=== PATIENT | female | born 1960 | race Caucasian/White ===

== ENCOUNTER 2016-08-12 21:32 | Emergency (ER) | payer OTHER ==
[~2016-08-12] VITALS: Ht 157.5 cm; Wt 63.0 kg
[~2016-08-12 21:32] MED LIST: LISI-360 PO; PARO25CR PO; TOPI25 PO; XANA1TAB6 PO
[2016-08-12 21:55] VITALS: BP 146/70; PULSE 82; RESP 16; TEMP 98.2; O2SAT 97
--- NOTE | 2016-08-12 22:37 | PD ---
HPI Chief Complaint: Psychiatric Symptoms Time Seen by Provider: 22:11 Travel History International Travel<30 days: No Contact w/Intl Traveler<30days: No Traveled to known affect area: No History of Present Illness HPI Patient is a 56-year-old female who presents to emergency room for psychiatric evaluation. Patient reports that she was feeling depressed today, reports that she told her friend that she went to get up on life and that "it was not worth it to live." Patient reports that her friend tried calling her but she did not case picker the phone. Patient reports that before she knew it, the guide alpine were at her house. Patient reports that she did drink some alcohol today. Patient reports that she feels suicidal with no active plan for suicide. Denies use of drugs. PFSH Social History Tobacco Use: No Substance Use: Yes Allergies-Medications (Allergen,Severity, Reaction): Coded Allergies: Penicillin (Verified Allergy, Severe, Rash, 08/13/16) Reported Meds & Prescriptions Reported Meds & Active Scripts Active Reported Lisinopril 10 Mg Tab 10 Mg PO DAILY Xanax (Alprazolam) 2 Mg Tab 2 Mg PO Q8H PRN Topamax (Topiramate) 25 Mg Tab 25 Mg PO BID Review of Systems General / Constitutional: No: Fever Eyes: No: Visual changes HENT: No: Headaches Cardiovascular: No: Chest Pain or Discomfort Respiratory: No: Shortness of Breath Gastrointestinal: No: Abdominal Pain Genitourinary: No: Dysuria Musculoskeletal: No: Pain Skin: No Rash Neurologic: No: Weakness Psychiatric: Positive: Suicidal Ideations, No: Depression Endocrine: No: Polydipsia Hematologic/Lymphatic: No: Easy Bruising Physical Exam Narrative GENERAL: No acute distress, nontoxic SKIN: Warm and dry. HEAD: Atraumatic. Normocephalic. EYES: Pupils equal and round. No scleral icterus. No injection or drainage. ENT: No nasal bleeding or discharge. Mucous membranes pink and moist. NECK: Trachea midline. No JVD. CARDIOVASCULAR: Regular rate and rhythm. No murmur appreciated. RESPIRATORY: No accessory muscle use. Clear to auscultation. Breath sounds equal bilaterally. GASTROINTESTINAL: Abdomen soft, non-tender, nondistended. Hepatic and splenic margins not palpable. MUSCULOSKELETAL: No obvious deformities. No clubbing. No cyanosis. No edema. NEUROLOGICAL: Awake and alert. Motor grossly within normal limits. Normal speech. PSYCHIATRIC: Depression, suicidal ideations Data Data Last Documented VS Vital Signs Date Time Temp Pulse Resp B/P Pulse Ox O2 Delivery O2 Flow Rate FiO2 08/13/16 15:42 90 16 150/80 Room Air 08/13/16 10:58 96 08/12/16 21:55 98.2 Orders Complete Blood Count With Diff (08/12/16 22:23) Comprehensive Metabolic Panel (08/12/16 22:23) Psych Screen (08/12/16 22:23) Drug Screen, Random Urine (08/12/16 22:23) Alcohol (Ethanol) (08/12/16 22:23) Diet Regular Basic (08/13/16 Breakfast) Diet Regular Basic (08/13/16 Lunch) Labs Laboratory Tests Test 08/12/16 22:30 White Blood Count 6.9 TH/MM3 Red Blood Count 4.38 MIL/MM3 Hemoglobin 14.0 GM/DL Hematocrit 40.3 % Mean Corpuscular Volume 92.0 FL Mean Corpuscular Hemoglobin 31.9 PG Mean Corpuscular Hemoglobin 34.7 % Concent Red Cell Distribution Width 13.3 % Platelet Count 293 TH/MM3 Mean Platelet Volume 7.6 FL Neutrophils (%) (Auto) 36.0 % Lymphocytes (%) (Auto) 52.6 % Monocytes (%) (Auto) 7.2 % Eosinophils (%) (Auto) 3.2 % Basophils (%) (Auto) 1.0 % Neutrophils # (Auto) 2.5 TH/MM3 Lymphocytes # (Auto) 3.6 TH/MM3 Monocytes # (Auto) 0.5 TH/MM3 Eosinophils # (Auto) 0.2 TH/MM3 Basophils # (Auto) 0.1 TH/MM3 CBC Comment DIFF FINAL Differential Comment Sodium Level 143 MEQ/L Potassium Level 3.9 MEQ/L Chloride Level 108 MEQ/L Carbon Dioxide Level 23.8 MEQ/L Anion Gap 11 MEQ/L Blood Urea Nitrogen 14 MG/DL Creatinine 0.85 MG/DL Estimat Glomerular Filtration 69 ML/MIN Rate Random Glucose 111 MG/DL Calcium Level 8.7 MG/DL Total Bilirubin 0.3 MG/DL Aspartate Amino Transf 20 U/L (AST/SGOT) Alanine Aminotransferase 33 U/L (ALT/SGPT) Alkaline Phosphatase 117 U/L Total Protein 7.2 GM/DL Albumin 3.8 GM/DL Urine Opiates Screen NEG Urine Barbiturates Screen NEG Urine Amphetamines Screen NEG Urine Benzodiazepines Screen POS Urine Cocaine Screen NEG Urine Cannabinoids Screen POS Ethyl Alcohol Level LESS THAN 3 MG/DL MDM Medical Decision Making Medical Screen Exam Complete: Yes Emergency Medical Condition: Yes Interpretation(s) Vital Signs Date Time Temp Pulse Resp B/P Pulse Ox O2 Delivery O2 Flow Rate FiO2 08/12/16 21:55 98.2 82 16 146/70 97 Differential Diagnosis Adjustment disorder, alcohol intoxication, suicidal ideations, depression Narrative Course Patient is a 56-year-old female who presents to emergency room with complaints of suicidal idealizations. Patient reports that she told her friend today that she felt suicidal and did not want to live anymore. She reports that the police detective showed up at her house and made her come to ER for psychiatric evaluation Psychiatric see labs ordered, once medically cleared, will have patient see screeners Diagnosis Primary Impression: Adjustment disorder, unspecified Additional Impression: Suicidal ideation Patient Instructions: General Instructions Additional Instructions: Please follow-up with a primary care doctor as soon as possible Return to the emergency room as needed Shobha Vitale DO Aug 12, 2016 22:37
[2016-08-12 22:46] LABS: AUTOMATED NEUTROPHIL # 2.5 TH/MM3 (1.8-7.7); BASOPHIL # 0.1 TH/MM3 (0-0.2); EOSINOPHIL # 0.2 TH/MM3 (0-0.4); EOSINOPHIL % 3.2 % (0.0-4.0); HEMATOCRIT 40.3 % (35.0-46.0); HEMO FLAGS DIFF FINAL; LYMPH % 52.6 % (9.0-44.0); LYMPHOCYTE # 3.6 TH/MM3 (1.0-4.8); MEAN CORPUSCULAR HEMOGLOBIN 31.9 PG (27.0-34.0); MEAN CORPUSCULAR HGB CONC 34.7 % (32.0-36.0); MONO % 7.2 % (0.0-8.0); PLATELET COUNT 293 TH/MM3 (150-450); RED BLOOD COUNT 4.38 MIL/MM3 (4.00-5.30); RED CELL DISTRIBUTION WIDTH 13.3 % (11.6-17.2); WHITE BLOOD COUNT 6.9 TH/MM3 (4.0-11.0)
[2016-08-12 22:55] LABS: AMPHETAMINE, URINE NEG (NEG); BARBITURATES, URINE NEG (NEG); COCAINE, URINE NEG (NEG)
[2016-08-12 23:20] LABS: ALKALINE PHOSPHATASE 117 U/L (45-117); TOTAL BILIRUBIN ADULT 0.3 MG/DL (0.2-1.0)
[2016-08-12 23:46] LABS: ALT (GPT) 33 U/L (10-53); ANION GAP 11 MEQ/L (5-15); AST (GOT) 20 U/L (15-37); BICARBONATE 23.8 MEQ/L (21.0-32.0); BLOOD UREA NITROGEN 14 MG/DL (7-18); CHLORIDE 108 MEQ/L (98-107); GLOMERULAR FILTRATION RATE 69 ML/MIN (>89); POTASSIUM 3.9 MEQ/L (3.5-5.1); SODIUM (NA) 143 MEQ/L (136-145)
[2016-08-13] MEDS ORDERED: TOPA25TA8 PO (00:26)
[2016-08-13] MEDS ORDERED: LISI10TA3 PO (00:26)
[2016-08-13] MEDS ORDERED: XANA2TAB2 PO (00:26)
[2016-08-13 04:51] VITALS: BP 116/57; PULSE 75; RESP 18; O2SAT 98
[2016-08-13 10:58] VITALS: BP 150/80; PULSE 90; RESP 16; O2SAT 96
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
[2016-08-13 15:42] VITALS: BP 150/80; PULSE 90; RESP 16
== END 2016-08-13 15:46 | disposition home or self-care (01) ==
LOC: NEPA 21:32 → NEPJ 08-13 15:46
DX: F31.31 Bipolar disorder, current episode depressed, mild (principal); F43.20 Adjustment disorder, unspecified; R45.851 Suicidal ideations; Z72.0 Tobacco use
CPT/HCPCS: 80053; 80307; 85025; 99283